=== PATIENT | male | born 2000 | race Caucasian/White ===

== ENCOUNTER 2020-08-01 13:13 | Emergency (ER) | payer MEDICAID ==
[~2020-08-01] VITALS: Ht 182.9 cm; Wt 136.4 kg
[~2020-08-01 13:13] MED LIST: ARIP10TA15 PO; CEPH500C5 PO; CLOT15CR74 TP; DIPH-423 PO; KEN0.1O TP
[2020-08-01 15:11] VITALS: BP 134/79
== END 2020-08-01 15:25 | disposition home or self-care (01) ==
LOC: ER 13:14
DX: R43.8 Other disturbances of smell and taste (principal); R53.83 Other fatigue; M79.10 Myalgia, unspecified site; Z20.828 Contact with and (suspected) exposure to other viral communicable diseases; Z79.2 Long term (current) use of antibiotics; Z79.899 Other long term (current) drug therapy
CPT/HCPCS: 36415; 87635; 99283